=== PATIENT | male | born 1955 | race Caucasian/White ===

== ENCOUNTER 2021-03-05 06:54 | Inpatient (IN) ==
--- NOTE | 2021-03-05 07:14 | Emergency Department Note ---
Impression & Plan Mass of spine, Left leg numbness, Lumbar radiculopathy ED Provider Note CHIEF COMPLAINT: Low back pain, left leg numbness HISTORY OF PRESENT ILLNESS: This 65-year-old male patient presents to the emergency department by private vehicle complaining of pain in the low back which began about 2 weeks ago after stepping down off of a piece of equipment and felt a pop in his back. The patient states that he was evaluated in the emergency department on Tuesday and had an MRI where they found a cyst on his lower lumbar spine. Patient states that he saw Dr. Monte with spine surgery yesterday and they are planning to do surgery at some point but this is not scheduled yet. The patient states that Dr. Monte told him to come to the ER if his pain got worse. The pain has been getting worse for the patient and he also now notes a burning sensation in the back of his calf and down onto his left foot. He also notes "foot drop" of the left foot and states that this is getting worse as well. He states that his had to tie his shoes for him today because he is unable to bend over because of the pain. He describes the pain as an ache and sometimes sharp and shooting, in the lower back and radiating into the left leg, and he rates the pain 9/10 in certain positions, but states his pain is currently a 4/10 and he is comfortable. He was prescribed Raymond for pain from his ER visit, he states he took this once, but it did not seem to help any better than ibuprofen he preferred not to take narcotics, so he has only been taking ibuprofen which he states "takes the edge off." The patient denies any loss of control of their bowel or bladder functions. He denies any saddle numbness. No nausea or vomiting or abdominal pain. No chest pain or shortness of breath. No dysuria or increased urinary frequency. He denies any fevers or chills. REVIEW OF SYSTEMS: A complete 10 point review of systems was reviewed with the patient with pertinent positives and negatives as per history of present illness. All else were negative. ALLERGIES: No known allergies PMH: Hyperlipidemia SOCIAL HISTORY: Lives at home with his , he denies tobacco use PHYSICAL EXAM: VITALS: Vitals are noted on the nurse's note and reviewed by myself. Vital signs stable. GENERAL: Pleasant and cooperative, in no acute distress, non-diaphoretic, well- developed well-nourished. SKIN: The skin was without rashes, erythema, edema, or bruising. Capillary refill less than 2 seconds. NECK: Supple without nuchal rigidity. No cervical spine tenderness. No paraspinous muscle tenderness. HEART: Regular rate and rhythm without murmurs gallops or rubs. LUNGS: Clear to auscultation bilaterally without wheezes, rales or rhonchi. ABDOMEN: Positive bowel sounds x 4. Normal tympanic percussion. Soft, nontender, without masses or organomegaly. Christiansen sign negative. MUSCULOSKELETAL: No muscle atrophy, erythema, or edema noted of the back. There is no midline tenderness over the lumbar spinous processes. There is mild left- sided tenderness over the paraspinous muscles of the lumbar region. There is no midline tenderness over the thoracic spine or tenderness of the thoracic pa raspinous muscles. There are no obvious muscle spasms present. The patient is slow to move around with maximum tenderness with sitting and bending over at the waist. Positive left straight leg raise test. NEURO: Patient was alert and oriented to person place and time. Normal sensation to light and sharp touch. Deep tendon reflexes 2+ in the lower extremities. Dorsalis pedis pulse 2+ bilaterally. Strength 5/5 and equal in the bilateral lower extremities, dorsiflexion and plantar flexion 5/5 and equal bilaterally. ED COURSE AND MEDICAL DECISION MAKING: CC: Patient presenting with complaint of worsening low back pain and left leg numbness DIFFERENTIAL DIAGNOSIS: Includes, but not limited to mass-effect, musculoskeletal, disc herniation, fracture, metastatic disease, cord compressi on, discitis, sciatica, cauda equina, infection, as well as other pathologies. INTERPRETATION OF LABS: No significant leukocytosis, no anemia, normal platelets, no significant electrolyte abnormalities, mildly elevated BUN with a normal creatinine, normal liver enzymes. SARS-CoV-2 PCR negative. MEDICATION RECONCILIATION: I attest that I have personally reviewed the patient's current medication list. INITIAL VITAL SIGNS REVIEW: I reviewed the patient's initial vital signs and interpret them as follows: T: Afebrile; BP: Hypertensive; HR: Within normal limits; RR: Within normal limits; Pulse Ox: Within normal limits on room air. MDM SUMMARY: Patient was evaluated at bedside, history and physical exam performed. Patient is alert and oriented, in no acute distress, resting calmly in stretcher. He is neurologically intact with no appreciable focal deficits on my exam. The patient does complain of left foot drop, this is not really appreciated on my exam. He also complains of numbness in the left leg, however sensation seems to be intact bilaterally. 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 The patient does not seem to have any significant changes in his neurologic exam at this time to warrant repeat imaging by my assessment. I did offer the patient something for pain, he states he is currently comfortable. I spoke on the phone with Dr. Monte, orthopedic spine surgery, he plans to admit the patient for possible surgery tomorrow. He did not feel additional imaging was warranted at this time either. He did request that the patient have basic labs and a Covid swab ordered. Patient was also discussed with Dr. Mcrae, the ED attending, who agrees with my assessment, plan, and disposition. Labs were reviewed, no significant abnormalities. The patient was updated on all results and plan for admission, questions were answered to the best of my ability and he was agreeable to this plan. The patient was stable at time of admission. The chart was completed utilizing [employer] Speech voice recognition software. Grammatical errors, random word insertions, pronoun errors, and incomplete sentences are an occasional consequence of this system due to software limitations, ambient noise, and hardware issues. Any formal questions or concerns about the content, text, or information contained within the body of this dictation should be directly addressed to the nurse practitioner for clarification. Past Med/Surg History Medical History No pertinent family history No pertinent past medical history Surgical History No pertinent past surgical history Social History Smoking Status: Never smoker Do You Dip or Chew Tobacco: No; Hx Alcohol Use: Yes Alcohol type: beer and wine Hx Substance Use: No Preferred Language: Turkish Communication Ability: Effective Web Production Manager Required: No Beliefs That Will Affect Care: None Current Living Situation: Family Other Information That Helps Us Care for You: No Feels Safe at Home: Yes Safety Concerns: Feels Safe At This Time Assistive Devices: Glasses Allergies Allergies Allergy/AdvReac Type Severity Reaction Status Date / Time No Known Allergies Allergy Unverified 03/05/21 08:01 Home Meds Home Medications Medication Instructions Recorded Confirmed ibuprofen 600 mg tablet (IBU) 600 mg PO Q8H PRN 03/03/21 03/05/21 simvastatin 20 mg tablet (Zocor) 20 mg PO HS 03/03/21 03/05/21 tizanidine 4 mg tablet (Zanaflex) 4 mg PO HS 03/03/21 03/05/21 ascorbic acid (vitamin C) 1,000 mg 1,000 mg PO QAM 03/05/21 03/05/21 tablet,extended release (Vitamin C ER) coenzyme Q10 100 mg capsule (Co 100 mg PO QAM 03/05/21 03/05/21 Q-10) krill oil 500 mg capsule 500 mg PO QAM 03/05/21 03/05/21 tumeric 100 mg-cristóbal 150 mg-olive 1 cap PO QAM 03/05/21 03/05/21 50 mg-oreg 150 mg-caprylate capsule zinc acetate 50 mg (zinc) capsule 50 mg PO QAM 03/05/21 03/05/21 Previous Rx's Medication Instructions Recorded hydrocodone 5 mg-acetaminophen 325 1 tab PO Q6H PRN #10 tab 03/03/21 mg tablet Results & Data (ED) Vital Signs Vital Signs - 24 hr 03/05/21 06:58 Temperature 36.8 C Temperature Source Temporal Artery Scan Pulse Rate 77 Respiratory Rate 18 Respiratory Effort / Characteristics Non-Labored Spontaneous Respiratory Depth Normal Blood Pressure 173/96 H Blood Pressure Mean 121 Pulse Oximetry 97 Oxygen Delivery Method Room Air Sepsis Recent Fever Within 48 Hours No Sepsis New/Unexplained Change in Mental Status N/A Sepsis Action Taken by Nursing No Action Required Laboratory Data Result diagrams: 03/05/21 07:36 03/05/21 07:36 Lab Results 03/05/21 03/05/21 03/05/21 Range/Units 07:35 07:35 07:36 WBC 10.87 H (4.8-10.8) K/uL RBC 4.81 (4.7-6.1) M/uL Hgb 14.6 (14.0-18.0) g/dL Hct 42.4 (42-52) % MCV 88.1 (80-100) fL MCH 30.4 (25-34) pg MCHC 34.4 (32-36) g/dL RDW Std Deviation 44.5 (36.4-46.3) fL RDW Coeff of Jenna 13.6 (11.5-14.5) % Plt Count 297 (130-400) K/uL MPV 10.6 H (7.4-10.4) fL Immature Gran % (Auto) 0.1 % Neut % (Auto) 77.4 % Lymph % (Auto) 13.5 % Han[place] % (Auto) 8.1 % Eos % (Auto) 0.7 % Baso % (Auto) 0.2 % Neut # (Auto) 8.41 H (1.4-6.5) K/uL Lymph # (Auto) 1.47 (1.2-3.4) K/uL Han[place] # (Auto) 0.88 H (0.11-0.59) K/uL Eos # (Auto) 0.08 (0-0.5) K/uL Baso # (Auto) 0.02 (0-0.2) K/uL Immature Gran # (Auto) 0.01 (0.00-0.02) K/uL Sodium (136-145) mmol/L Potassium (3.5-5.1) mmol/L Chloride (98-107) mmol/L Carbon Dioxide (21-32) mmol/L Anion Gap (3-11) BUN (7-18) mg/dl Creatinine (0.6-1.4) mg/dl Est Cr Clr Drug Dosing ml/min Est GFR ( Amer) ml/min Est GFR (Non-Af Amer) ml/min BUN/Creatinine Ratio (10-20) Glucose (70-99) mg/dl Calcium (8.5-10.1) mg/dl Total Bilirubin (0.2-1) mg/dl AST (15-37) U/L ALT (12-78) U/L Alkaline Phosphatase (45-117) U/L Total Protein (6.4-8.2) gm/dl Albumin (3.4-5.0) gm/dl Globulin (2.5-4.0) gm/dl Albumin/Globulin Ratio (0.9-2) COVID-19 Eval Order Covid19 at [facility] SARS-CoV-2 (PCR) NEGATIVE (Negative) 03/05/21 Range/Units 07:36 WBC (4.8-10.8) K/uL RBC (4.7-6.1) M/uL Hgb (14.0-18.0) g/dL Hct (42-52) % MCV (80-100) fL MCH (25-34) pg MCHC (32-36) g/dL RDW Std Deviation (36.4-46.3) fL RDW Coeff of Jenna (11.5-14.5) % Plt Count (130-400) K/uL MPV (7.4-10.4) fL Immature Gran % (Auto) % Neut % (Auto) % Lymph % (Auto) % [place] % (Auto) % Eos % (Auto) % Baso % (Auto) % Neut # (Auto) (1.4-6.5) K/uL Lymph # (Auto) (1.2-3.4) K/uL Hanover # (Auto) (0.11-0.59) K/uL Eos # (Auto) (0-0.5) K/uL Baso # (Auto) (0-0.2) K/uL Immature Gran # (Auto) (0.00-0.02) K/uL Sodium 140 (136-145) mmol/L Potassium 4.4 (3.5-5.1) mmol/L Chloride 108 H (98-107) mmol/L Carbon Dioxide 28 (21-32) mmol/L Anion Gap 4.0 (3-11) BUN 21 H (7-18) mg/dl Creatinine 0.94 (0.6-1.4) mg/dl Est Cr Clr Drug Dosing 84.2 ml/min Est GFR ( Amer) 98.9 ml/min Est GFR (Non-Af Amer) 85.3 ml/min BUN/Creatinine Ratio 21.9 H (10-20) Glucose 76 (70-99) mg/dl Calcium 8.7 (8.5-10.1) mg/dl Total Bilirubin 0.9 (0.2-1) mg/dl AST 15 (15-37) U/L ALT 30 (12-78) U/L Alkaline Phosphatase 59 (45-117) U/L Total Protein 6.7 (6.4-8.2) gm/dl Albumin 3.7 (3.4-5.0) gm/dl Globulin 3.0 (2.5-4.0) gm/dl Albumin/Globulin Ratio 1.2 (0.9-2) COVID-19 Eval Order SARS-CoV-2 (PCR) (Negative) Administered Medications Lactated Ringer's (Lr) 1,000 mls @ 75 mls/hr IV .[id number] JANNY Stop: 04/04/21 10:30 Last Admin: 03/05/21 12:03 Dose: 75 mls/hr Documented by: [id number] Discontinued Medications Acetaminophen (Acetaminophen 500 Mg Tab) 1,000 mg PO NOW STA Stop: 03/05/21 09:35 Last Admin: 03/05/21 09:45 Dose: 1,000 mg Documented by: [id number] Discharge Plan Visit Data Chief Complaint: Back Injury/Pain Stated Complaint: LOWER BACK PAIN AND LEG NUMBING ED Provider: Guero Mcrae ED Midlevel Provider: Gladis Bauer Discharge Problem: Mass of spine, Left leg numbness, Lumbar radiculopathy Patient Disposition: Admitted As Inpatient Condition: Good Discharge Instructions Interventions: ED Discharge Assessment Last Done: 03/05/21 10:18
[2021-03-05 07:50] LABS: Basophils # (auto) 0.02 K/uL (0-0.2); Basophils % (auto) 0.2 %; Eosinophils # (auto) 0.08 K/uL (0-0.5); Eosinophils % (auto) 0.7 %; Hematocrit (blood only) 42.4 % (42-52); Hemoglobin 14.6 g/dL (14.0-18.0); Immature Granulocytes # (auto) 0.01 K/uL (0.00-0.02); Immature Granulocytes % (auto) 0.1 %; Lymphocytes # (auto) 1.47 K/uL (1.2-3.4); Lymphocytes % (auto) 13.5 %; Mean Corpuscular Hemoglobin 30.4 pg (25-34); Mean Corpuscular Hgb Conc 34.4 g/dL (32-36); Mean Corpuscular Volume 88.1 fL (80-100); Mean Platelet Volume 10.6 fL (7.4-10.4); Monocytes # (auto) 0.88 K/uL (0.11-0.59); Monocytes % (auto) 8.1 %; Neutrophils # (auto) 8.41 K/uL (1.4-6.5); Neutrophils % (auto) 77.4 %; Platelet Count 297 K/uL (130-400); RDW Coefficient of Variation 13.6 % (11.5-14.5); RDW Standard Deviation 44.5 fL (36.4-46.3); Red Blood Count 4.81 M/uL (4.7-6.1); White Blood Count 10.87 K/uL (4.8-10.8)
--- NOTE | 2021-03-05 08:06 | History & Physical Report ---
Date of Service March 05, 2021 Assessment & Plan (1) Lumbar radiculopathy: Plan: Plan for urgent decompression fusion L4-L5 History of Present Illness Chief Complaint: severe back and leg pain with weakness Primary Care Provider: Janel Lo PA-C 65 year old with worsening back and L leg pain after fall at work. Pain extends from buttock to foot on the left. Noting numbness, tingling and now a foot drop. Pain is uncontrolled Allergies Allergy/AdvReac Type Severity Reaction Status Date / Time No Known Allergies Allergy Unverified 03/05/21 08:01 Home Medications Medication Instructions Recorded Confirmed Type hydrocodone 5 mg-acetaminophen 325 1 tab PO Q6H PRN #10 tab 03/03/21 Rx mg tablet ibuprofen 600 mg tablet (IBU) 600 mg PO Q8H PRN 03/03/21 03/03/21 History simvastatin 20 mg tablet (Zocor) 20 mg PO HS 03/03/21 03/03/21 History tizanidine 4 mg tablet (Zanaflex) 4 mg PO HS 03/03/21 03/03/21 History ascorbic acid (vitamin C) 1,000 mg 1,000 mg PO QAM 03/05/21 03/05/21 History tablet,extended release (Vitamin C ER) coenzyme Q10 100 mg capsule (Co 100 mg PO QAM 03/05/21 03/05/21 History Q-10) krill oil 500 mg capsule 500 mg PO QAM 03/05/21 03/05/21 History tumeric 100 mg-cristóbal 150 mg-olive 1 cap PO QAM 03/05/21 03/05/21 History 50 mg-oreg 150 mg-caprylate capsule zinc acetate 50 mg (zinc) capsule 50 mg PO QAM 03/05/21 03/05/21 History Past Med/Surg History Medical History No pertinent family history No pertinent past medical history Surgical History No pertinent past surgical history Social History Smoking Status: Never smoker Feels Safe at Home: Yes Physical Exam Physical Exam: He is in obvious distress and prefers to stand secondary to pain. Tension signs with strait leg raise on the L 4- / 5 LLE dorsi flexion and EHL with sensory deficits 5/5 RLE Results & Data ([facility]) Vital Signs (Past 12 Hours) Vital Signs Temp Pulse Resp BP Pulse Ox 03/05/21 06:58 36.8 C 77 18 173/96 H 97 Code Status & VTE Plan VTE Prophylaxis Plan VTE Prophylaxis will be ordered: Yes
[2021-03-05 08:18] LABS: Albumin Level 3.7 gm/dl (3.4-5.0); BUN Creatinine Ratio 21.9 (10-20); Calcium 8.7 mg/dl (8.5-10.1); Creatinine Clr Calc Pharmacy 84.2 ml/min; Est GFR (African American) 98.9 ml/min; Est GFR (Non-African American) 85.3 ml/min; Potassium 4.4 mmol/L (3.5-5.1)
[2021-03-05 08:20] LABS: Albumin Globulin Ratio 1.2 (0.9-2); Bilirubin,Total 0.9 mg/dl (0.2-1); Total Protein 6.7 gm/dl (6.4-8.2)
[2021-03-05] MEDS ORDERED: ACETAMINOPHEN 500 MG TAB PO STA (09:34)
[2021-03-05] MEDS ORDERED: ONDANSETRON 4 MG OD TAB PO PRN (10:31)
[2021-03-05] MEDS ORDERED: MAGNESIUM HYDROXIDE SUSP 30 ML UDC PO PRN (10:31)
[2021-03-05] MEDS ORDERED: PROMETHAZINE HCL 12.5 MG in SODIUM CHLORIDE 0.9% 50 ML IV PRN (10:31)
[2021-03-05] MEDS ORDERED: hydrOXYzine HCl 25 MG TAB PO PRN (10:31)
[2021-03-05] MEDS ORDERED: ALUMINUM/MAGNESIUM SUSP 30 ML UDC PO PRN (10:31)
[2021-03-05] MEDS ORDERED: diphenhydrAMINE Capsule 25 MG CAP PO PRN (10:31)
[2021-03-05] MEDS ORDERED: ACETAMINOPHEN 500 MG TAB PO PRN (10:31)
[2021-03-05] MEDS ORDERED: METOCLOPRAMIDE HCL INJ 5 MG/ML 2 ML VIAL IV PRN (10:31)
[2021-03-05] MEDS ORDERED: LORazepam 0.5 MG/1 ML VIAL IV PRN (10:31)
[2021-03-05] MEDS ORDERED: LORazepam 0.5 MG TAB PO PRN (10:31)
[2021-03-05] MEDS ORDERED: HYDROmorphone INJ 1 MG/ML SYRINGE IV PRN (10:31)
[2021-03-05] MEDS ORDERED: ONDANSETRON INJ 2 MG/ML 2 ML VIAL IV PRN ×2 (10:31→12:20)
[2021-03-05] MEDS ORDERED: NALOXONE HCL 0.4 MG/1 ML VIAL/CARP IV PRN (10:31)
[2021-03-05] MEDS ORDERED: ACETAMINOPHEN 1,000 MG/100 ML VIAL IV PRN (10:31)
[2021-03-05] MEDS ORDERED: traMADol HCL 50 MG TABLET PO PRN (10:31)
--- NOTE | 2021-03-05 11:34 | Hospitalist Consultation ---
Date of Consultation March 05, 2021 Assessment & Plan (1) Lumbar radiculopathy: (2) Left foot drop: (3) Left leg numbness: - admit to med surg - Check EKG and chest 1 view portable for preop - Pain controlled currently, was taking ibuprofen at home. Continue with tylenol, oxycodone, morphine and dilaudid IV prn - Dr. monte planning on surgery tomorrow - allow diet today, NPO at midnight - Bowel regimen ordered - PT/OT consults after surgery - discussion regarding encouraging exercising such as yoga and core strengthening after surgery - Follow labs - WNL on admission - (4) HLD (hyperlipidemia): - Check lipid panel - Continue statin, fish oil, Coenz-Q10 - Diet and exercise DVT PPX: teds, no chemical ppx in the setting of spinal surgery tomorrow CODE: FULL Dispo: From home, likely to remain in hospital x 1-2 days Thank you for involving us in the care of Mr. Gómez. Please do not hesitate to call with questions or concerns. At this time medicine service will follow along. Supervising Physician Co-Signing Physician Notes Patient is a 65-year-old male with history of hyperlipidemia and no other significant medical history presents with history of worsening back pain since 2 weeks duration. He also admits to have left foot drop and has difficulty with ambulation secondary to pain. Denies any chest pain, shortness breath, dizziness, nausea, abdominal pain. Plan for lumbar decompression fusion surgery by Dr. Monte tomorrow. On exam patient is moderately built and nourished, no apparent distress, normocephalic atraumatic, lungs are clear to auscultation, S1-S2, no murmur, abdomen soft, nontender, normal bowel sounds, alert, awake, oriented,+ left lower extremity weak when compared to the right lower extremity. Patient is consulted for medical management. Lumbar radiculopathy, left foot drop. Pain control, bowel regimen. Plan for surgery tomorrow. N.p.o. after midnight. Continue statin for hyperlipidemia. DVT prophylaxis as per primary team. I personally reviewed the record. Patient is interviewed and examined at bedside. Patient's care is coordinated with Jackelyn Alvarez PA-C. Please refer to the documentation above for details of patient's presentation and for discussion of other issues. History of Present Illness Reason for Consultation: Medical management Requesting Physician: Dr. Monte Attending Physician: Jonathan Monte, DO History of Present Illness This is a 65-year-old male with PMHx of HLD who presents with worsening back pain to the ER this morning for c/o worsening back pain of the lower back which began about 2 weeks ago after getting out of a piece of equipment at work and felt a pop in his back. He had previously been evaluated in the ER on 03/03/2021 where MRI revealed a cyst on his lumbar spine. As an outpatient yesterday he saw Dr. Monte with spinal surgery and was planning on doing surgery however had not previously been scheduled. He represented to the ER this morning due to worsening pain, and noted numbness from his buttocks down into the left foot as well as a foot drop on the left side as well. He rated his pain as a 9/10. Previously had been prescribed Dinosaur however did not take prescription as it did not seem to help, instead took ibuprofen at home. Denies loss of bowel or bladder function, saddle anesthesia, abdominal complaints, fevers, chills or sweats. No chest pain or shortness of breath. He notes aggravating factor is sitting, and does not have any pain when he is standing. He is unable to lye flat in the bed today and is propped up on his left side. is at bedside. He notes incredible pain whenever attempting to put his socks on today. Social Hx: no alcohol or smoking hx. 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 Dr. Monte has consulted medicine for management of the patient as he undergoes urgent surgical procedure scheduled for 03/06/21. Allergies Allergy/AdvReac Type Severity Reaction Status Date / Time No Known Allergies Allergy Unverified 03/05/21 08:01 Home Medications Medication Instructions Recorded Confirmed Type hydrocodone 5 mg-acetaminophen 325 1 tab PO Q6H PRN #10 tab 03/03/21 03/05/21 Rx mg tablet ibuprofen 600 mg tablet (IBU) 600 mg PO Q8H PRN 03/03/21 03/05/21 History simvastatin 20 mg tablet (Zocor) 20 mg PO HS 03/03/21 03/05/21 History tizanidine 4 mg tablet (Zanaflex) 4 mg PO HS 03/03/21 03/05/21 History ascorbic acid (vitamin C) 1,000 mg 1,000 mg PO QAM 03/05/21 03/05/21 History tablet,extended release (Vitamin C ER) coenzyme Q10 100 mg capsule (Co 100 mg PO QAM 03/05/21 03/05/21 History Q-10) krill oil 500 mg capsule 500 mg PO QAM 03/05/21 03/05/21 History tumeric 100 mg-cristóbal 150 mg-olive 1 cap PO QAM 03/05/21 03/05/21 History 50 mg-oreg 150 mg-caprylate capsule zinc acetate 50 mg (zinc) capsule 50 mg PO QAM 03/05/21 03/05/21 History Patient History Medical History No pertinent family history No pertinent past medical history Surgical History No pertinent past surgical history Social History Smoking Status: Never smoker Do You Dip or Chew Tobacco: No; Hx Alcohol Use: Yes Alcohol type: beer and wine Hx Substance Use: No Preferred Language: Namibian Communication Ability: Effective Police Guard Required: No Beliefs That Will Affect Care: None Current Living Situation: Family Other Information That Helps Us Care for You: No Feels Safe at Home: Yes Safety Concerns: Feels Safe At This Time Assistive Devices: Glasses Review of Systems Review of Systems: Constitutional: No fever, sweats or chills Eyes: No diplopia, no worsening or blurred vision ENT: normal hearing, no trouble swallowing Respiratory: No cough, sputum, dyspnea at rest or on exertion Cardiovascular: No chest pain, tightness or palpitations Abdomen: No pain, nausea, vomiting, diarrhea or constipation Back: Lumbar back pain worse with right hip flexion, bending and reaching towards toes. Musculoskeletal: No joint pain, calf pain, swelling Neurologic: No weakness, + R leg numbness from behind knee, wrapping laterally around lower leg to anterior ankle region, no tingling, no balance problems, no falls Psychiatric: No anxiety or depression Skin: No rash or itch Physical Exam Physical Exam: General: awake, alert, no apparent distress Head: Normocephalic, atraumatic ENT: PERRL, EOMI, no pharyngeal exudate, mucous membranes moist Chest: Clear to auscultation, on room air, no adventitious breath sounds Cardiac: Regular rate and rhythm, no murmur, no JVD, normal peripheral pulses, good capillary refill Abdominal: NABS x 4 quadrants, soft, nondistended, nontender to palpation, no rebound or guarding Extremities: Normal inspection, no peripheral edema or erythema, calfs nontender to palpation Psych: Normal mood and affect Neuro: AAO x 3, strength intact bilaterally and rated 5/5, no motor deficits, speech is clear, no peripheral sensory deficits Results & Data Results & Data ([facility]) Vital Signs (Past 12 Hours) Vital Signs Temp Pulse Pulse Resp BP BP Pulse Ox 03/05/21 10:41 36.8 C 58 L 16 159/94 H 96 03/05/21 10:09 55 L 18 131/77 97 03/05/21 09:27 61 18 128/93 98 03/05/21 08:32 50 L 18 138/79 96 03/05/21 06:58 36.8 C 77 18 173/96 H 97
[2021-03-05] MEDS: LACTATED RINGER'S 1,000 ML IV SCH ×2 (12:03→21:11)
[2021-03-05] MEDS ORDERED: ACETAMINOPHEN 325 MG TAB PO PRN (12:20)
[2021-03-05] MEDS ORDERED: MoRPHine SULFATE 4 MG/ML 1 ML CARP\\VIAL IV PRN (12:20)
[2021-03-05] MEDS ORDERED: oxyCODONE/ACETAMINOPHEN 5mg/325mg TAB PO PRN (12:20)
--- NOTE | 2021-03-05 15:32 | Electrocardiogram Report ---
Test Reason : Blood Pressure : / mmHG Vent. Rate : 063 BPM Atrial Rate : 063 BPM P-R Int : 190 ms QRS Dur : 092 ms QT Int : 408 ms P-R-T Axes : 055 008 030 degrees QTc Int : 417 ms Normal sinus rhythm inferoposterior ND , age undetermined Abnormal ECG No previous ECGs available Confirmed by Daniel Rivers ([id number]) on 03/05/2021 3:31:51 PM Referred By: REFERRED SELF Confirmed By:Daniel Rivers
--- NOTE | 2021-03-05 19:55 | XRay Report ---
XR chest 1V portable HISTORY: Preop. Back pain. COMPARISON: None. FINDINGS: The lungs are clear. Cardiac silhouette is normal in size. No pleural effusions. No pneumot horax. IMPRESSION: No acute process. ACT 112: Negative or not required by law. Electronically signed by: Lenard Wallace M.D. 03/05/2021 7:53 PM
--- NOTE | 2021-03-05 19:58 | Anesthesiology Consultation ---
Date of Service March 05, 2021 Assessment & Plan (1) Encounter for pre-operative examination: Chart Review Chart Review: Patient NOT seen in Pre Admission Testing Consults Requested none Additional Notes Pt with no prior history of cardiac disease, but EKG read stating inferoposterior VT. Pt will need to be evaluated by the assigned anesthesiologist in the morning. History Surgery Operation Date: 03/06/21 11:05 Proposed Procedures p L4-L5 Decompression Fusion, Spinal Cord Monitoring - Jonathan Monte DO Height/Weight Height: 5 ft 8 in Weight: 84.8 kg Allergies Allergy/AdvReac Type Severity Reaction Status Date / Time No Known Allergies Allergy Unverified 03/05/21 08:01 Medications Home Medications Medication Instructions Recorded Confirmed Last Taken hydrocodone 5 mg-acetaminophen 325 1 tab PO Q6H PRN #10 tab 03/03/21 03/05/21 Unknown mg tablet ibuprofen 600 mg tablet (IBU) 600 mg PO Q8H PRN 03/03/21 03/05/21 03/05/21 05:15 600 mg simvastatin 20 mg tablet (Zocor) 20 mg PO HS 03/03/21 03/05/21 03/04/21 tizanidine 4 mg tablet (Zanaflex) 4 mg PO HS 03/03/21 03/05/21 03/04/21 ascorbic acid (vitamin C) 1,000 mg 1,000 mg PO QAM 03/05/21 03/05/21 03/05/21 tablet,extended release (Vitamin C ER) coenzyme Q10 100 mg capsule (Co 100 mg PO QAM 03/05/21 03/05/21 03/05/21 Q-10) krill oil 500 mg capsule 500 mg PO QAM 03/05/21 03/05/21 03/05/21 tumeric 100 mg-cristóbal 150 mg-olive 1 cap PO QAM 03/05/21 03/05/21 03/05/21 50 mg-oreg 150 mg-caprylate capsule zinc acetate 50 mg (zinc) capsule 50 mg PO QAM 03/05/21 03/05/21 03/05/21 Active Medications Generic Name Dose Route Start Last Admin Trade Name Freq PRN Reason Stop Dose Admin Acetaminophen 1,000 mg 03/05/21 10:31 03/05/21 17:34 Acetaminophen 500 Mg Tab PO 04/04/21 10:30 1,000 mg Q8H PRN Administration MILD Pain Scale 1,2,3 & Pre PT Lactated Ringer's 1,000 mls @ 75 mls/hr 03/05/21 10:31 03/05/21 12:03 Lr IV 04/04/21 10:30 75 mls/hr .[id number] JANNY Administration Past Medical History Medical History No pertinent family history No pertinent past medical history Past Surgical History Surgical History No pertinent past surgical history Social History Smoking Status: Never smoker Do You Dip or Chew Tobacco: No Hx Alcohol Use: Yes Alcohol type: beer and wine alcohol intake frequency: holidays/special occasions only Hx Substance Use: No Physical Exam Vital Signs Last Vital Signs Temp 37.1 C 03/05/21 15:38 Pulse 57 L 03/05/21 15:38 Resp 16 03/05/21 15:38 BP 160/85 H 03/05/21 15:38 Pulse Ox 96 03/05/21 15:38 Testing Laboratory Results 03/05/21 07:36 03/05/21 07:36 Electrocardiogram Date: 03/05/21 Findings: + NSR @ (63) Normal sinus rhythm inferoposterior VT , age undetermined Abnormal ECG No previous ECGs available
[2021-03-05] MEDS: DOCUSATE SODIUM/SENNA 50/8.6MG TAB PO SCH (20:09)
[2021-03-05] MEDS: SIMVASTATIN 20 MG TAB PO SCH (20:09)
[2021-03-05] MEDS: oxyCODONE HCL IR 5 MG TAB (IMMEDIATE RELEASE) PO PRN (22:45)
[2021-03-06] MEDS: LACTATED RINGER'S 1,000 ML IV SCH ×3 (00:25→16:28)
[2021-03-06] MEDS: HYDROmorphone INJ 0.5 MG/0.5 ML SYR IV PRN ×2 (01:37→01:56)
[2021-03-06] MEDS ORDERED: ceFAZolin 2000MG 2,000 MG/15 ML SYR IV SCH (06:00)
[2021-03-06 06:14] LABS: Hematocrit (blood only) 43.2 % (42-52); Hemoglobin 14.6 g/dL (14.0-18.0); Mean Corpuscular Hemoglobin 29.9 pg (25-34); Mean Corpuscular Hgb Conc 33.8 g/dL (32-36); Mean Corpuscular Volume 88.3 fL (80-100); Mean Platelet Volume 10.8 fL (7.4-10.4); Platelet Count 309 K/uL (130-400); RDW Coefficient of Variation 13.7 % (11.5-14.5); RDW Standard Deviation 44.6 fL (36.4-46.3); Red Blood Count 4.89 M/uL (4.7-6.1)
[2021-03-06 06:43] LABS: BUN Creatinine Ratio 17.1 (10-20); Calcium 8.8 mg/dl (8.5-10.1); Creatinine Clr Calc Pharmacy 73.9 ml/min; Est GFR (African American) 84.6 ml/min; Magnesium 2.2 mg/dl (1.8-2.4); Potassium 4.5 mmol/L (3.5-5.1)
[2021-03-06] MEDS ORDERED: PROPOFOL IV EMULSION 10 MG/ML 20 ML VIAL IV ONE (09:14)
[2021-03-06] MEDS ORDERED: DEXAMETHASONE SOD INJ 4 MG/ML VIAL ONE (09:14)
[2021-03-06] MEDS ORDERED: LIDOCAINE 2% 2 ML VIAL/AMP(20MG/ML) INFIL ONE (09:14)
[2021-03-06] MEDS ORDERED: ONDANSETRON INJ 2 MG/ML 2 ML VIAL ONE (09:14)
[2021-03-06] MEDS ORDERED: ROCURONIUM BROMIDE 10 MG/ML 5 ML VIAL IV ONE ×3 (09:15→12:51)
[2021-03-06] MEDS ORDERED: MIDAZOLAM HCL 1 MG/ML 2ML VIAL ONE (10:25)
[2021-03-06] MEDS ORDERED: fentaNYL citrate 100 MCG/2 ML VIAL ONE (10:25)
[2021-03-06] MEDS ORDERED: HYDROmorphone INJ 2 MG/ML SYR/VIAL ONE (10:26)
--- NOTE | 2021-03-06 11:13 | Electrocardiogram Report ---
Test Reason : Blood Pressure : / mmHG Vent. Rate : 062 BPM Atrial Rate : 062 BPM P-R Int : 192 ms QRS Dur : 104 ms QT Int : 426 ms P-R-T Axes : 036 021 018 degrees QTc Int : 432 ms Normal sinus rhythm Normal ECG When compared with ECG of 05-MAR-2021 14:14, No significant change was found Confirmed by Yosi Payan ([id number]) on 03/06/2021 11:13:29 AM Referred By: REFERRED SELF Confirmed By:Yosi Payan
[2021-03-06] MEDS ORDERED: ATROPINE SULFATE 0.1 MG/ML 10ML SYR IV PRN (11:23)
[2021-03-06] MEDS ORDERED: PHENYLEPHRINE 100MCG/ML 5ML SYR IV PRN (11:23)
[2021-03-06] MEDS ORDERED: fentaNYL citrate 100 MCG/2 ML VIAL IV PRN (11:23)
[2021-03-06] MEDS ORDERED: ONDANSETRON INJ 2 MG/ML 2 ML VIAL IV PRN ×2 (11:23→16:04)
[2021-03-06] MEDS ORDERED: HYDROmorphone INJ 1 MG/ML SYRINGE IV PRN (11:23)
[2021-03-06] MEDS ORDERED: LABETALOL HCL IV 5 MG/ML 20ML IV PRN (11:23)
[2021-03-06] MEDS ORDERED: ePHEDrine sulfate 50 MG/ML AMP IV PRN (11:23)
--- NOTE | 2021-03-06 11:24 | History & Physical Bridge Note ---
Date of Service March 06, 2021 History & Physical Bridge Note I have examined the patient, reviewed the History & Physical and in the interval since the performance of the History & Physical I have noted the following changes of clinical significance: no changes noted Lumbar decompression fusion L4-L5
[2021-03-06] MEDS ORDERED: BUPIVACAINE 0.5 % 5 MG/1 ML MPF 30ML VIAL ONE (11:34)
[2021-03-06] MEDS ORDERED: EPINEPHrine INJ 1 MG/ML AMP ONE (11:34)
[2021-03-06] MEDS ORDERED: GLYCOPYRROLATE 0.2 MG/ML VIAL ONE (12:51)
[2021-03-06] MEDS ORDERED: PHENYLEPHRINE 100MCG/ML 5ML SYR ONE (12:51)
[2021-03-06] MEDS ORDERED: NEOSTIGMINE METHYLSULFATE 1 MG/ML 10ML VIAL ONE (12:51)
[2021-03-06] MEDS ORDERED: Influenza Vaccine (Fluarix) 0.5 ML SYR (Standard Dose) IM ONE (13:00)
[2021-03-06] MEDS ORDERED: ePHEDrine sulfate 50 MG/ML SYR ONE (13:49)
--- NOTE | 2021-03-06 13:57 | Operative Report ---
Post Operative Report Pre & Post Diagnosis Operation Date: 03/06/21 11:05 Pre-Op Diagnosis: Lower back pain and leg numbing Post-Op Diagnosis: Lower back pain and leg numbing I identified the patient and participated in the time-out.: Yes Procedure Operation Date: 03/06/21 11:05 Actual Procedures #1 lumbar decompression bilaterally facetectomies and foraminotomies L3-4 and L4-L5. #2 posterior spinal fusion L4-5 per #3 placement posterior instrumentation L4-5. #4 interbody fusion L4-5 per #5 placement peek cage 14 x 26 mm at L4-5. #6 placement of I factor combined with V toss in the interbody space and posterior gutters. #7 placement of locally harvested morselized autograft in the posterior lateral gutters. Surgeon Jonathan Monte, Magazine Journalist Landon Maldonado Estimated Blood Loss 100 Findings Consistent with Post-Op Diagnosis Specimens None Indications This is a 65-year-old male who presents with acute decline in status with severe left leg pain and developing foot drop and is here for urgent decompression fusion Description of Procedure Patient was met with identified informed consent obtained. Patient was then taken to the operative suite underwent a patient placed in a prone position the Brett table on top of the Juan frame. All bony prominences well-padded eyes inspected to ensure no external pressure placed upon the. This point the lumbar spine was prepped and draped in a sterile fashion. The assistance of fluoroscopy identified the L4-L5 level. Sharp dissection with the assistance of Bovie cautery was performed down to and exposing the lamina and transverse processes of L4-L5. From a caudal cephalad fashion complete laminectomy of L4 partial laminectomy of L3 was performed including bilateral medial facetectomies and foraminotomies addressing all stenosis as well as identifying and removing a massive facet cyst at 4 5 on the left. There was blood within the cyst suggesting an acute bleed. Pedicle screws were then placed in L4 and L5 bilaterally with assistance of fluoroscopy and the proper sized jay placed. Bilateral transforaminal approach on the left complete discectomy was performed endplates curetted to subcortical being bone and a 14 x 26 mm peek cage filled with I factor tapped in position. The rods were then compressed locked into final position bilaterally. The transverse processes of L4 and L5 burred to subcortical bleeding bone. I factor combined with Vitoss was placed in the posterior gutters and harvested morselized allograft. A 15 round ZIGGY drain inserted. The incision was closed with 1 Vicryl fascia 2-0 Vicryl subcutaneously and 4 Monocryl for final skin closure. Steri-Strips dressings placed. Patient will continue PACU stable condition. Please note Landon record was present at the entire procedure and all the patient positioning complex portions of the surgery and final skin closure. Lastly spinal cord monitoring was utilized at the procedure no changes noted. I attest to the content of the Intraoperative Record and any orders documented therein. Any exceptions are noted below.
--- NOTE | 2021-03-06 14:20 | Fluoroscopy Report ---
FL lumbar spine 2-3V CLINICAL HISTORY: L4-L5 DECOMPRESSION AND FUSION COMPARISON STUDY: None. FLUOROSCOPY TIME: 15 second. FINDINGS: 2 fluoroscopic spot images of the lumbar spine demonstrate L4-5 posterior decompression fus ion with pedicle screws and rods. The hardware is intact. Disc spacers in place. IMPRESSION: Fluoroscopy for for L4-5 posterior decompression and fusion ACT 112: Negative or not required by law. Electronically signed by: Lenard Wallace M.D. 03/06/2021 2:19 PM
--- NOTE | 2021-03-06 14:51 | Anesthesiology Progress Note ---
Date of Service March 06, 2021 Anesthesia Post Procedure Vital Signs Vital Signs: Temp Pulse Pulse Resp BP Pulse Ox 03/06/21 14:35 67 12 159/89 H 99 03/06/21 14:25 68 12 165/96 H 99 03/06/21 14:18 36.0 C L 71 14 162/87 H 97 03/06/21 11:49 37.2 C 66 18 168/95 H 97 03/06/21 07:18 36.7 C 62 16 124/74 97 03/06/21 04:01 70 122/78 03/05/21 21:58 36.9 C 64 15 139/73 95 03/05/21 15:38 37.1 C 57 L 16 160/85 H 96 Pain Intensity Back: Pain Intensity: 2 Transfer of Care Handoff Completed per policy Notes Mental Status: alert / awake / arousable Patient Amnestic to Procedure: Yes Nausea / Vomiting: adequately controlled Pain: adequately controlled Airway Patency, RR, SpO2: stable & adequate BP & HR: stable & adequate Hydration State: stable & adequate Anesthetic Complications: no major complications apparent and Pt Satisfied with anesthetic care
[2021-03-06] MEDS ORDERED: diphenhydrAMINE Capsule 25 MG CAP PO PRN (16:04)
[2021-03-06] MEDS ORDERED: bisacodyL 10 MG SUPP PR PRN (16:04)
[2021-03-06] MEDS ORDERED: LORazepam 0.5 MG TAB PO PRN (16:04)
[2021-03-06] MEDS ORDERED: ACETAMINOPHEN 500 MG TAB PO PRN (16:04)
[2021-03-06] MEDS ORDERED: hydrOXYzine HCl 25 MG TAB PO PRN (16:04)
[2021-03-06] MEDS ORDERED: traMADol HCL 50 MG TABLET PO PRN (16:04)
[2021-03-06] MEDS ORDERED: DO NOT ADMINISTER FLU VACCINE PRN (16:04)
[2021-03-06] MEDS ORDERED: oxyCODONE HCL IR 5 MG TAB (IMMEDIATE RELEASE) PO PRN (16:04)
[2021-03-06] MEDS ORDERED: FAMOTIDINE 20 MG TAB PO PRN (16:04)
[2021-03-06] MEDS ORDERED: PROMETHAZINE HCL 12.5 MG in SODIUM CHLORIDE 0.9% 50 ML IV PRN (16:04)
[2021-03-06] MEDS ORDERED: MAGNESIUM HYDROXIDE SUSP 30 ML UDC PO PRN (16:04)
[2021-03-06] MEDS ORDERED: DO NOT ADMINISTER PNEUMOCOCCAL VACCINE PRN (16:04)
[2021-03-06] MEDS ORDERED: LORazepam 0.5 MG/1 ML VIAL IV PRN (16:04)
[2021-03-06] MEDS ORDERED: METOCLOPRAMIDE HCL INJ 5 MG/ML 2 ML VIAL IV PRN (16:04)
[2021-03-06] MEDS ORDERED: NALOXONE HCL 0.4 MG/1 ML VIAL/CARP IV PRN (16:04)
[2021-03-06] MEDS ORDERED: ALUMINUM/MAGNESIUM SUSP 30 ML UDC PO PRN (16:04)
[2021-03-06] MEDS ORDERED: ONDANSETRON 4 MG OD TAB PO PRN (16:04)
[2021-03-06] MEDS ORDERED: ACETAMINOPHEN 1,000 MG/100 ML VIAL IV PRN (16:04)
[2021-03-06] MEDS ORDERED: SOD PHOSPHATE/SOD BIPHOSPHATE ENEMA 132 ML BTL PR PRN (16:04)
--- NOTE | 2021-03-06 17:39 | Hospitalist Progress Note ---
Date of Service March 06, 2021 Assessment & Plan (1) Lumbar radiculopathy: (2) Left foot drop: (3) Left leg numbness: Plan: Lower back pain and leg numbness S/P lumbar decompression, fusion surgery POD#0 Pain control, activity, wound care as per primary team Consider anticoagulation when appropriate Continue bowel regimen to prevent constipation PT OT when appropriate Monitor for postop anemia Abnormal EKG ECHO: Mild concentric LVH. EF 60 to 65%. Grade 1 diastolic dysfunction. No segmental left ventricle wall motion abnormality. No significant valvular pathology Advised to follow-up with cardiology as outpatient next - (4) HLD (hyperlipidemia): Plan: -Continue statin, fish oil, Coenz-Q10 DVT Px: SCDs CODE STATUS: FULL CODE Admission and Anticipated Discharge Date Admission Date: March 05, 2021 Subjective Patient is seen and examined at bedside Patient had lumbar surgery today States feeling well postoperatively Back pain is controlled Denies any chest pain, shortness of breath, dizziness, nausea, abdominal pain Family at bedside Review of Systems Review of Systems: All systems reviewed & are unremarkable except as noted in Subjective Physical Exam Physical Exam: Physical Exam: Vitals signs as noted above General Appearance:Moderately built and nourished, no apparent distress Head: normocephalic, Atraumatic Eyes: normal inspection, EOMI Neck: supple, Trachea midline Respiratory/Chest: Normal breath sounds, CTA, No accessory muscle use Cardiovascular: S1, S2, No murmur Abdomen/GI:Soft, Non tender, Bowel sounds present Back:Surgical site in dressing, +drain Extremities/Musculoskeletal:normal inspection, no edema Neurologic/Psych:AAOX3, grossly no focal neurological deficits Skin: normal color, warm Results & Data Results & Data ([facility]) Vital Signs (Past 12 Hours) Vital Signs Temp Pulse Pulse Resp BP Pulse Ox 03/06/21 17:22 36.7 C 83 18 127/72 98 03/06/21 16:29 36.7 C 74 16 128/73 96 03/06/21 16:00 37.1 C 77 16 147/87 H 93 03/06/21 15:35 67 9 L 155/83 H 98 03/06/21 15:25 69 16 170/91 H 96 03/06/21 15:15 36.7 C 72 16 150/85 H 96 03/06/21 15:05 36.7 C 67 14 155/84 H 94 03/06/21 14:55 36.7 C 66 11 L 155/89 H 96 03/06/21 14:45 36.7 C 71 17 141/92 H 98 03/06/21 14:35 67 12 159/89 H 99 03/06/21 14:25 68 12 165/96 H 99 03/06/21 14:18 36.0 C L 71 14 162/87 H 97 03/06/21 11:49 37.2 C 66 18 168/95 H 97 03/06/21 07:18 36.7 C 62 16 124/74 97 Laboratory Results Short CBC 03/06/21 Range/Units 05:46 WBC 11.00 H (4.8-10.8) K/uL Hgb 14.6 (14.0-18.0) g/dL Hct 43.2 (42-52) % Plt Count 309 (130-400) K/uL BMP 03/06/21 05:46 Sodium 139 Potassium 4.5 Chloride 107 Carbon Dioxide 30 BUN 18 Creatinine 1.07 Glucose 112 H Calcium 8.8 Cardiac Enzymes 03/06/21 03/06/21 Range/Units 09:49 16:06 Troponin I < 0.015 < 0.015 (0-0.045) ng/ml
[2021-03-06] MEDS: KETOROLAC 30 MG/ML VIAL IV SCH ×2 (18:11→23:13)
[2021-03-06] MEDS: DOCUSATE SODIUM/SENNA 50/8.6MG TAB PO SCH (20:09)
[2021-03-06] MEDS: SIMVASTATIN 20 MG TAB PO SCH (20:09)
[2021-03-06] MEDS: ceFAZolin 2000MG 2,000 MG/15 ML SYR IV SCH (20:10)
[2021-03-06] MEDS ORDERED: DOCUSATE SODIUM/SENNA 50/8.6MG TAB PO SCH (21:00)
[2021-03-07] MEDS: LACTATED RINGER'S 1,000 ML IV SCH ×2 (02:04→12:38)
[2021-03-07] MEDS: ceFAZolin 2000MG 2,000 MG/15 ML SYR IV SCH (03:47)
[2021-03-07] MEDS: POLYETHYLENE (MIRALAX) 17 GM PACK PO SCH ×3 (05:52→17:55)
[2021-03-07] MEDS: KETOROLAC 30 MG/ML VIAL IV SCH ×2 (05:52→11:47)
[2021-03-07 06:20] LABS: Basophils # (auto) 0.01 K/uL (0-0.2); Basophils % (auto) 0.1 %; Eosinophils # (auto) 0.02 K/uL (0-0.5); Eosinophils % (auto) 0.1 %; Hematocrit (blood only) 36.7 % (42-52); Hemoglobin 12.5 g/dL (14.0-18.0); Immature Granulocytes # (auto) 0.03 K/uL (0.00-0.02); Immature Granulocytes % (auto) 0.2 %; Lymphocytes # (auto) 1.26 K/uL (1.2-3.4); Mean Corpuscular Hemoglobin 30.1 pg (25-34); Mean Corpuscular Hgb Conc 34.1 g/dL (32-36); Mean Corpuscular Volume 88.4 fL (80-100); Mean Platelet Volume 10.5 fL (7.4-10.4); Monocytes # (auto) 0.93 K/uL (0.11-0.59); Monocytes % (auto) 6.6 %; Neutrophils # (auto) 11.77 K/uL (1.4-6.5); Platelet Count 292 K/uL (130-400); RDW Standard Deviation 45.8 fL (36.4-46.3); Red Blood Count 4.15 M/uL (4.7-6.1); White Blood Count 14.02 K/uL (4.8-10.8)
[2021-03-07 06:52] LABS: Calcium 8.6 mg/dl (8.5-10.1); Creatinine Clr Calc Pharmacy 65.9 ml/min; Est GFR (African American) 73.6 ml/min; Est GFR (Non-African American) 63.5 ml/min; Potassium 4.1 mmol/L (3.5-5.1)
--- NOTE | 2021-03-07 07:17 | Orthopedic Progress Note ---
Date of Service March 07, 2021 Assessment & Plan (1) Lumbar radiculopathy: Plan: Pt is doing well POD #1 s/p PSF L4-5. We will start physical therapy today. Maintain ZIGGY drain. Continue with pain control. DVT prophylaxis is in the form of TEDS/SCDs. Anticipate discharge home within the next 24-48 hours. Admission and Anticipated Discharge Date Admission Date: March 05, 2021 Supervising Physician Co-Signing Physician Notes Dr. Jonathan Monte Subjective Pt is POD #1 PSF L4-5. He had an uneventful evening. No acute issues. He reports very little pain. He was up and ambulatory around the room last evening. ZIGGY output was 80cc last shift. Voiding without issues. Leg pain resolved. No other complaints. Review of Systems Review of Systems: All systems reviewed & are unremarkable except as noted in HPI & below Physical Exam Physical Exam: A&Ox3 NAD LEFT EHL strength markedly improved 5/5 strength otherwise B/L calves soft and nontender B/L lumbar dressing C/D/I with functioning ZIGGY drain intact Results & Data ([facility]) Vital Signs (Past 12 Hours) Vital Signs Temp Pulse Pulse Resp BP Pulse Ox 03/07/21 07:03 36.3 C L 67 18 116/71 94 03/07/21 03:47 36.7 C 66 18 118/69 95 03/06/21 22:07 37.1 C 81 20 119/70 95
[2021-03-07] MEDS: ASCORBIC ACID 500 MG TAB PO SCH (07:41)
[2021-03-07] MEDS: ZINC SULFATE 220 MG CAPSULE PO SCH (07:42)
[2021-03-07] MEDS ORDERED: bisacodyL 10 MG SUPP PR PRN (07:51)
[2021-03-07] MEDS ORDERED: [UNRECOGNIZED DRUG - OTHER] PO SCH (09:00)
[2021-03-07] MEDS ORDERED: NON-FORMULARY MEDICATION (Coenzyme Q10 [Co Q-10] 100 mg Capsule) PO SCH (09:00)
--- NOTE | 2021-03-07 16:34 | Hospitalist Progress Note ---
Date of Service March 07, 2021 Assessment & Plan (1) Lumbar radiculopathy: (2) Left foot drop: (3) Left leg numbness: Plan: Lower back pain and leg numbness S/P lumbar decompression, fusion surgery POD#1 Pain control, activity, wound care as per primary team Consider anticoagulation when appropriate Continue bowel regimen to prevent constipation PT OT when appropriate Monitor for postop anemia Pain is controlled Encourage to ambulate as able Abnormal EKG ECHO: Mild concentric LVH. EF 60 to 65%. Grade 1 diastolic dysfunction. No segmental left ventricle wall motion abnormality. No significant valvular pathology Advised to follow-up with cardiology as outpatient next Elevated blood pressure Labile BP secondary to pain We will consider antihypertensives if needed Monitor (4) HLD (hyperlipidemia): Plan: -Continue statin, fish oil, Coenz-Q10 DVT Px: SCDs CODE STATUS: FULL CODE Admission and Anticipated Discharge Date Admission Date: March 05, 2021 Subjective Patient is seen and examined at bedside States doing well today Denies any pain at surgical site Ambulating in hallways No bowel movement today Denies chest pain, shortness of breath, dizziness, nausea, abdominal pain Review of Systems Review of Systems: All systems reviewed & are unremarkable except as noted in Subjective Physical Exam Physical Exam: Physical Exam: Vitals signs as noted above General Appearance:Moderately built and nourished, no apparent distress Head: normocephalic, Atraumatic Eyes: normal inspection, EOMI Neck: supple, Trachea midline Respiratory/Chest: Normal breath sounds, CTA, No accessory muscle use Cardiovascular: S1, S2, No murmur Abdomen/GI:Soft, Non tender, Bowel sounds present Back:Surgical site in dressing, +drain Extremities/Musculoskeletal:normal inspection, no edema Neurologic/Psych:AAOX3, grossly no focal neurological deficits Skin: normal color, warm Results & Data Results & Data ([facility]) Vital Signs (Past 12 Hours) Vital Signs Temp Pulse Resp BP Pulse Ox 03/07/21 12:22 36.9 C 66 16 124/77 96 03/07/21 07:03 36.3 C L 67 18 116/71 94 Laboratory Results Short CBC 03/07/21 Range/Units 06:01 WBC 14.02 H (4.8-10.8) K/uL Hgb 12.5 L (14.0-18.0) g/dL Hct 36.7 L (42-52) % Plt Count 292 (130-400) K/uL BMP 03/07/21 06:01 Sodium 139 Potassium 4.1 Chloride 107 Carbon Dioxide 27 BUN 19 H Creatinine 1.20 Glucose 107 H Calcium 8.6 Cardiac Enzymes 03/06/21 Range/Units 16:06 Troponin I < 0.015 (0-0.045) ng/ml
[2021-03-07] MEDS: DOCUSATE SODIUM/SENNA 50/8.6MG TAB PO SCH (20:36)
[2021-03-07] MEDS: SIMVASTATIN 20 MG TAB PO SCH (20:36)
[2021-03-08] MEDS: POLYETHYLENE (MIRALAX) 17 GM PACK PO SCH (00:01)
[2021-03-08 07:36] LABS: Hematocrit (blood only) 37.6 % (42-52); Hemoglobin 12.4 g/dL (14.0-18.0); Mean Corpuscular Hemoglobin 30.2 pg (25-34); Mean Corpuscular Volume 91.5 fL (80-100); Mean Platelet Volume 10.8 fL (7.4-10.4); Platelet Count 270 K/uL (130-400); RDW Coefficient of Variation 14.3 % (11.5-14.5); RDW Standard Deviation 48.5 fL (36.4-46.3); Red Blood Count 4.11 M/uL (4.7-6.1); White Blood Count 12.86 K/uL (4.8-10.8)
[2021-03-08] MEDS: oxyCODONE HCL IR 5 MG TAB (IMMEDIATE RELEASE) PO PRN ×2 (08:04→13:34)
[2021-03-08] MEDS: ZINC SULFATE 220 MG CAPSULE PO SCH (08:05)
[2021-03-08] MEDS: ASCORBIC ACID 500 MG TAB PO SCH (08:05)
[2021-03-08 08:08] LABS: BUN Creatinine Ratio 23.1 (10-20); Calcium 8.5 mg/dl (8.5-10.1); Creatinine Clr Calc Pharmacy 88.9 ml/min; Est GFR (African American) 104.7 ml/min; Est GFR (Non-African American) 90.4 ml/min; Potassium 4.5 mmol/L (3.5-5.1)
--- NOTE | 2021-03-08 11:15 | Discharge Summary ---
Date of Service March 08, 2021 Admission HPI Per Admitting Provider 65 year old with worsening back and L leg pain after fall at work. Pain extends from buttock to foot on the left. Noting numbness, tingling and now a foot drop. Pain is uncontrolled Principal Diagnosis lumbar radiculopathy Discharge Data Allergies Allergy/AdvReac Type Severity Reaction Status Date / Time No Known Allergies Allergy Unverified 03/05/21 08:01 Consultations 03/05/21 07:30 ED Decision to Admit Stat 03/05/21 10:31 Consult Anesthesiology Routine Consult Internal Medicine Routine Procedures Performed Operation Date: 03/06/21 11:05 Actual Procedures p L4-L5 Decompression Fusion, Spinal Cord Monitoring(Not Applicable) - Jonathan Monte DO Ordered Studies 03/06/21 11:05 [place] lumbar spine 2-3V Routine Hospital Course (1) Lumbar radiculopathy: Patient was admitted with severe leg pain and weakness underwent surgery the following day. He Targis well stable orthopedic floor. Postop day 1 he was up and ambulating without difficulty postop #2 ZIGGY drain decreased probably. Excellent strength testing. Pain well controlled. Subsequent discharge home. Discharge orders instructions from the chart for further review. Total Time Total Time Spent Total Time Spent (In Minutes): 20 mins Discharge Plan Discharge Items Patient Disposition: Home - Self-Care Reason For Visit: LOWER BACK PAIN AND LEG NUMBING Discharge Diagnosis: Lumbar radiculopathy Condition on Discharge: Good Activity: As commented below Non-emergency contact: Primary Care Provider Call non-emergency contact if: you have any medication questions Follow-up/Referrals: Janel Lo PA-C [Primary Care Provider] - Diet: Regular Addtl Attending Provider Instructions: ACTIVITY RECOMMENDATIONS: SELF CARE INSTRUCTIONS AFTER THORACIC/LUMBAR FUSIONS 1. You may walk to your tolerance. It is good exercise for your legs and back. Expect some back and intermittent leg aches and pains. 2. You may perform "counter-top" level activities (make a sandwich, eric with a project, etc.). 3. No bending or lifting of more than 10 pounds or back twisting of any nature (roll like a log when turning in bed). 4. You may ride in a car for 20-30 minutes at a time. No driving until after your first visit with your doctor. 5. Frequent changes of position and restricting sitting to 30 minutes at a time will help limit the amount of back spasms and stiffness you may experience. 6. You may discontinue the use of ambulatory aids (cane, crutches, etc.) once your strength and confidence allow. 7. You may coffin maker the shower and let water strike your incision when you arrive home at least once daily. Do not take a tub bath, sit in a hot tub or go into a swimming pool until after your first recheck in the office. SPECIAL CARE INSTRUCTIONS: VERY IMPORTANT TO READ AND REVIEW A. Your surgical incision has been closed with a cosmetic suture under the skin that will dissolve in about 6 weeks. In 14 days, you can use a pair of clean scissors and cut the suture that is left outside of the skin at the ends of your incision. 1. The small skin tapes can be removed 7 days after surgery if they have not fallen off by that point. 2. You may keep the wound open to air as much as possible to promote healing after post-op day number 5 unless told otherwise by your doctor. 3. If you think the wound looks like it is becoming infected (redness or worsening drainage) and/or you are experiencing fever, chill or worsening back pain and muscle spasms, contact the office so that we may evaluate you as soon as possible. B. Complications are uncommon, but please contact us if you have any signs or symptoms of: 1. wound infection (fever higher than 102.5 degrees F, redness, separation of wound, drainage, or increasing pain from the incision) 2. blood clots in legs (pain, swelling, redness and warmth in legs) 3. urinary tract infection (fever higher than 102.5 degrees F, burning upon urination or increased frequency of urination) 4. nerve problems (inability to walk on your toes or heels, numbness, loss of bowel or bladder control) 5. any other symptoms that concern you C. Please call the office at if you have any concerns or questions about your operation or recovery. D. No smoking! Smoking drastically decreases the chance of a solid fusion. E. Do not take any anti-inflammatory medications (Indocin, Advil, Motrin, Aspirin, Naprosyn, etc.) as these may inhibit the chance of a solid fusion. Tylenol is okay to take for pain. MANAGING PAIN AFTER SPINAL SURGERY 1. Narcotic medication is intended for short-term use and will be provided for surgical pain. Surgical pain usually lasts for a period of 4-6 weeks. Narcotic medication includes Percocet, Vicodin, Darvocet, Tylenol #3 or Lortab. 2. Longer-term pain is more appropriately treated with non-narcotic medication such as Tylenol ES. 3. Muscle spasm is not appropriately treated with narcotics. Muscle relaxers such as Soma, Flexeril or Skelaxin can be used along with Tylenol ES. 4. Remember that we all live with some "aches and pains". This is not unusual or uncommon after an injury or as we get older. a. Back pain is expected and may include muscle spasms for 4 to 6 weeks after surgery. The pain should gradually improve. If the pain worsens for no apparent reason, please contact the office. b. Intermittent leg pain may also be experienced and should not be concerned about unless it worsens for no apparent reason. If so, please contact the office. 5. We will provide appropriate medication within the normal guidelines of their prescribed use. We will also be very cautious and aware of potential abuse and extended duration of patients' medication needs. a. Pain medications are for your comfort and to assist with sleep and rest so that the tissue can heal. They are not provided in order to return to normal activity and should not be used through the day. To do so or worsening pain at night can result from ongoing tissue damage and development of tolerance to the prescribed medicine. 6. Please allow 2-3 days to process refills. Prescriptions will not be mailed but must be picked up at the office. FOLLOW UP VISIT: Keep your scheduled follow-up appointment. Any questions, please call the office at . Pending Studies at Discharge: No Stand-Alone Forms: My [employer], Smoking Cessation Medications and DC Order Prescriptions: New tramadol 50 mg tablet 50 mg PO Q6H PRN (Reason: pain, moderate) Qty: 30 RF: 0 oxycodone 5 mg tablet 5 mg PO Q6H PRN (Reason: pain, severe) Qty: 30 RF: 0 Continued tizanidine [Zanaflex] 4 mg tablet 4 mg PO HS RF: 0 simvastatin [Zocor] 20 mg tablet 20 mg PO HS RF: 0 zinc acetate 50 mg (zinc) Capsule 50 mg PO QAM RF: 0 Vitamin C 1,000 mg Tablet Extended Release 1,000 mg PO QAM RF: 0 coenzyme Q10 [Co Q-10] 100 mg Capsule 100 mg PO QAM RF: 0 krill oil 500 mg Capsule 500 mg PO QAM RF: 0 pexjdow-ucug-zvhcx-oreg-capryl 100 mg-150 mg- 50 mg-150 mg Capsule 1 cap PO QAM RF: 0 Discontinued ibuprofen [IBU] 600 mg tablet 600 mg PO Q8H PRN (Reason: Pain) RF: 0 hydrocodone-acetaminophen 5-325 mg tablet 1 tab PO Q6H PRN (Reason: pain) Qty: 10 RF: 0 Discharge Orders: Discharge Order (Routine); Ordered 03/08/21 Ordered By: Jonathan Monte Admission Data Admit Date/Time: 03/05/21 07:57 Attending Provider: Jonathan Monte Admit Provider: Jonathan Monte Primary Care Provider: Janel Lo Other Providers: Dane Heath ; Jonathan Monte ; Roshan Gasca ; Kenia Rosenbaum. Other Interventions: Discharge Summary Assessment (RN) Last Done: 03/08/21 11:08
[2021-03-08] MEDS ORDERED: dexAMETHasone 8 MG in SYRINGE 0 ML IV STA (11:16)
--- NOTE | 2021-03-08 14:55 | Hospitalist Progress Note ---
Date of Service March 08, 2021 Assessment & Plan (1) Lumbar radiculopathy: (2) Left foot drop: (3) Left leg numbness: Plan: Lower back pain and leg numbness S/P lumbar decompression, fusion surgery POD#2 Pain control, activity, wound care as per primary team Consider anticoagulation when appropriate Continue bowel regimen to prevent constipation PT OT when appropriate Monitor for postop anemia Pain is controlled Encourage to ambulate as able Plan to discharge home today Abnormal EKG ECHO: Mild concentric LVH. EF 60 to 65%. Grade 1 diastolic dysfunction. No segmental left ventricle wall motion abnormality. No significant valvular pathology Advised to follow-up with cardiology as outpatient next Elevated blood pressure Labile BP secondary to pain We will consider antihypertensives if needed Monitor BP stable today Is to monitor blood pressure at home and follow-up with PCP for further recommendations. (4) HLD (hyperlipidemia): Plan: -Continue statin, fish oil, Coenz-Q10 DVT Px: SCDs CODE STATUS: FULL CODE Admission and Anticipated Discharge Date Admission Date: March 05, 2021 Subjective Patient is seen and examined at bedside States having lower back pain at surgical site this morning Had bowel movement Plan to be discharged home today BP stable Denies chest pain, shortness of breath, dizziness, nausea, abdominal pain Review of Systems Review of Systems: All systems reviewed & are unremarkable except as noted in Subjective Physical Exam Physical Exam: Physical Exam: Vitals signs as noted above General Appearance:Moderately built and nourished, no apparent distress Head: normocephalic, Atraumatic Eyes: normal inspection, EOMI Neck: supple, Trachea midline Respiratory/Chest: Normal breath sounds, CTA, No accessory muscle use Cardiovascular: S1, S2, No murmur Abdomen/GI:Soft, Non tender, Bowel sounds present Back:Surgical site in dressing, +drain Extremities/Musculoskeletal:normal inspection, no edema Neurologic/Psych:AAOX3, grossly no focal neurological deficits Skin: normal color, warm Results & Data Results & Data ([facility]) Vital Signs (Past 12 Hours) Vital Signs Temp Pulse Pulse Resp BP Pulse Ox 03/08/21 11:08 37.0 C 66 62 18 111/68 96 03/08/21 07:35 37.0 C 62 18 111/68 96 Laboratory Results Short CBC 03/08/21 Range/Units 07:03 WBC 12.86 H (4.8-10.8) K/uL Hgb 12.4 L (14.0-18.0) g/dL Hct 37.6 L (42-52) % Plt Count 270 (130-400) K/uL [facility] 03/08/21 07:03 Sodium 141 Potassium 4.5 Chloride 110 H Carbon Dioxide 27 BUN 21 H Creatinine 0.89 D Glucose 108 H Calcium 8.5
== END 2021-03-08 14:14 | disposition home or self-care (01) | DRG 455 ==
LOC: ED 06:54 → 3N 07:57